=== PATIENT | male | born 1975 | race Caucasian/White ===

== ENCOUNTER 2018-03-14 06:09 | Inpatient (IN) | payer MEDICARE ==
[2018-03-14] MEDS: IV NORMAL SALINE 1000ML BAG 1,000 ML IV ×2 (06:48→13:56)
[2018-03-14 06:52] LABS: POC GLUCOSE 212 mg/dL (70-99)
[2018-03-14] MEDS ORDERED: LIDOCAINE 1% PF 2 ML VIAL. ID (07:00)
[2018-03-14] MEDS ORDERED: MORPHINE SULFATE 4 MG/ML DISP.SYRIN. IV (07:00)
[2018-03-14] MEDS ORDERED: PROCHLORPERAZINE 10 MG/2 ML VIAL. IV (07:00)
[2018-03-14] MEDS ORDERED: fentaNYL PF VIAL 100 MCG/2 ML VIAL IV (07:00)
[2018-03-14] MEDS ORDERED: fentaNYL PF VIAL 100 MCG/2 ML VIAL (07:10)
[2018-03-14] MEDS ORDERED: ROCURONIUM 50 MG/5 ML VIAL. (07:10)
[2018-03-14] MEDS ORDERED: SEVOFLURANE 61 TO 120 MINUTES. IH (07:11)
[2018-03-14] MEDS ORDERED: PROPOFOL 20 ML IV (07:11)
[2018-03-14] MEDS ORDERED: DEXAMETHASONE SOD PHOS 20 MG/5 ML VIAL. (07:11)
[2018-03-14] MEDS ORDERED: LIDOCAINE 2% PF Vial for OR 5 ML VIAL. (07:11)
[2018-03-14] MEDS ORDERED: ONDANSETRON PF 4 MG/2 ML VIAL. (07:11)
[2018-03-14] MEDS ORDERED: MIDAZOLAM HCL/PF 2 MG/2 ML VIAL. (07:12)
[2018-03-14 07:39] LABS: INR 1.2 (0.8-1.1); PARTIAL THROMBOPLASTIN TIME 42 SEC (24-38); PROTHROMBIN TIME PATIENT 14.5 SEC (11.7-14.0)
[2018-03-14] MEDS ORDERED: PHENYLEPHRINE in 0.9% NACL PF 1 MG/10 ML SYRINGE. IV ×2 (08:05→11:15)
[2018-03-14] MEDS ORDERED: SEVOFLURANE > 120 MINUTES. IH (10:30)
[2018-03-14 13:07] LABS: POC GLUCOSE 222 mg/dL (70-99)
[2018-03-14] MEDS ORDERED: oxyCODONE/APAP 5/325 1 TAB TABLET PO (13:30)
[2018-03-14] MEDS ORDERED: MORPHINE SULFATE 2 MG/ML DISP.SYRIN. IV (13:30)
[2018-03-14] MEDS ORDERED: 0.9 % SODIUM CHLORIDE 10 ML DISP.SYRIN. IV (13:30)
[2018-03-14] MEDS ORDERED: ONDANSETRON PF 4 MG/2 ML VIAL. IV (13:30)
[2018-03-14] MEDS: fentaNYL PF VIAL 100 MCG/2 ML VIAL IV (13:33)
[2018-03-14] MEDS: INSULIN ASPART 100 UNIT/ML 10ML VIAL. SQ (13:35)
[2018-03-14] MEDS ORDERED: DEXTROSE 50% 25 GM / 50ML DISP.SYRIN. IV (15:00)
[2018-03-14] MEDS ORDERED: ACETAMINOPHEN 500 MG TABLET PO (15:00)
[2018-03-14] MEDS: MORPHINE SULFATE 4 MG/ML DISP.SYRIN. IV ×2 (15:18→19:24)
[2018-03-14 15:28] LABS: GFR 10.4
[2018-03-14] MEDS ORDERED: WARFARIN SODIUM 9 MG PO (16:00)
[2018-03-14 16:17] LABS: POC GLUCOSE 221 mg/dL (70-99)
[2018-03-14] MEDS: WARFARIN 3 MG TABLET. PO (17:09)
[2018-03-14] MEDS: SEVELAMER CARBONATE 800 MG TABLET. PO (17:10)
[2018-03-14] MEDS: INSULIN LISPRO 300 UNITS/3 ML INSULN.PEN. SQ ×2 (17:20→22:48)
[2018-03-14 21:06] LABS: POC GLUCOSE 241 mg/dL (70-99)
[2018-03-14] MEDS: ATORVASTATIN CALCIUM 40 MG TABLET. PO (22:00)
[2018-03-14] MEDS: METOPROLOL TART IMMED RELEASE 50 MG TABLET. PO (22:00)
[2018-03-14] MEDS: PSEUDOEPHEDRINE 30 MG TABLET. PO (22:01)
[2018-03-14] MEDS: INSULIN GLARGINE 300 UNITS/3 ML INSULN.PEN. SQ (22:07)
[2018-03-15] MEDS ORDERED: HEPARIN for IV BOLUS 10,000 UNIT/10 ML VIAL. IV (01:00)
[2018-03-15] MEDS: HEPARIN 25,000UTS/500ML PREMIX 500 ML IV (01:20)
[2018-03-15 07:36] LABS: ADD MAN DIFF? NO
[2018-03-15 07:41] LABS: BASO % 0 % (0-3); EOS # 0.8 x10^3/uL (0.0-0.7); EOS % 13 % (0-3); HEMATOCRIT 23.7 % (39.0-53.0); HEMOGLOBIN 7.7 g/dL (13.0-17.5); LYMPH # 1.7 x10^3/uL (1.0-4.8); LYMPH % 28 % (24-48); MEAN CORPUSCULAR HEMOGLOBIN 31 pg (25-35); MEAN CORPUSCULAR HGB CONC 32 g/dL (31-37); MEAN CORPUSCULAR VOLUME 96 fL (79-100); MONO # 0.3 x10^3/uL (0.0-1.1); MONO % 5 % (0-9); NEUT # 3.2 x10^3uL (1.8-7.7); NEUT % 53 % (31-73); PLATELET COUNT 177 x10^3/uL (140-400); RED BLOOD COUNT 2.48 x10^6/uL (4.30-5.70); RED CELL DISTRIBUTION WIDTH 19.5 % (11.5-14.5)
[2018-03-15 07:50] LABS: ANION GAP 8 (6-14); BLOOD UREA NITROGEN 27 mg/dL (8-26); CALCIUM 8.2 mg/dL (8.5-10.1); CARBON DIOXIDE 31 mmol/L (21-32); CHLORIDE 101 mmol/L (98-107); CREATININE 7.5 mg/dL (0.7-1.3); GLUCOSE 241 mg/dL (70-99); POTASSIUM 4.6 mmol/L (3.5-5.1); SODIUM 140 mmol/L (136-145)
[2018-03-15 07:52] LABS: INR 1.3 (0.8-1.1); PROTHROMBIN TIME PATIENT 15.8 SEC (11.7-14.0)
[2018-03-15 07:57] LABS: POC GLUCOSE 216 mg/dL (70-99)
[2018-03-15] MEDS ORDERED: IV NORMAL SALINE 1000ML BAG 1,000 ML IV ×2 (08:02)
[2018-03-15 08:05] LABS: UNFRACTIONATED HEPARIN TESTING 0.48 IU/mL (0.30-0.70)
[2018-03-15] MEDS ORDERED: diphenhydrAMINE 50 MG/ML VIAL IV ×2 (08:15)
[2018-03-15] MEDS ORDERED: DIALYSIS PATIENT. MC (08:15)
[2018-03-15] MEDS: SEVELAMER CARBONATE 800 MG TABLET. PO ×3 (08:23→17:07)
[2018-03-15] MEDS: INSULIN LISPRO 300 UNITS/3 ML INSULN.PEN. SQ ×5 (08:23→20:58)
[2018-03-15] MEDS ORDERED: WARFARIN SODIUM 6 MG PO (09:00)
[2018-03-15] MEDS: IV NORMAL SALINE 1000ML BAG 1,000 ML IV ×2 (09:00→13:19)
[2018-03-15] MEDS: METOPROLOL TART IMMED RELEASE 50 MG TABLET. PO ×2 (09:00→20:57)
[2018-03-15] MEDS: PSEUDOEPHEDRINE 30 MG TABLET. PO ×2 (09:00→20:57)
[2018-03-15] MEDS: ASPIRIN ENTERIC COATED 81 MG TABLET.DR. PO (13:30)
[2018-03-15] MEDS: SERTRALINE 50 MG TABLET. PO (13:30)
[2018-03-15] MEDS: oxyCODONE/APAP 5/325 1 TAB TABLET PO (13:32)
[2018-03-15 13:41] LABS: POC GLUCOSE 98 mg/dL (70-99)
[2018-03-15 16:36] LABS: POC GLUCOSE 104 mg/dL (70-99)
[2018-03-15] MEDS: WARFARIN 3 MG TABLET. PO (17:07)
[2018-03-15 18:58] LABS: UNFRACTIONATED HEPARIN TESTING 0.31 IU/mL (0.30-0.70)
[2018-03-15 20:56] LABS: POC GLUCOSE 91 mg/dL (70-99)
[2018-03-15] MEDS: ATORVASTATIN CALCIUM 40 MG TABLET. PO (20:57)
[2018-03-15] MEDS: INSULIN GLARGINE 300 UNITS/3 ML INSULN.PEN. SQ (21:03)
[2018-03-16] MEDS: IV NORMAL SALINE 1000ML BAG 1,000 ML IV ×3 (02:08→21:20)
[2018-03-16] MEDS: HEPARIN 25,000UTS/500ML PREMIX 500 ML IV (02:14)
[2018-03-16] MEDS: oxyCODONE/APAP 5/325 1 TAB TABLET PO (02:15)
[2018-03-16 05:25] LABS: CALCIUM 8.4 mg/dL (8.5-10.1)
[2018-03-16 07:27] LABS: INR 1.5 (0.8-1.1); PROTHROMBIN TIME PATIENT 17.6 SEC (11.7-14.0); UNFRACTIONATED HEPARIN TESTING 0.35 IU/mL (0.30-0.70)
[2018-03-16] MEDS: INSULIN LISPRO 300 UNITS/3 ML INSULN.PEN. SQ ×7 (07:30→21:00)
[2018-03-16 08:04] LABS: POC GLUCOSE 186 mg/dL (70-99)
[2018-03-16] MEDS: METOPROLOL TART IMMED RELEASE 50 MG TABLET. PO ×2 (08:20→21:12)
[2018-03-16] MEDS: PSEUDOEPHEDRINE 30 MG TABLET. PO ×2 (08:20→21:19)
[2018-03-16] MEDS: SEVELAMER CARBONATE 800 MG TABLET. PO ×3 (08:21→17:24)
[2018-03-16] MEDS: ASPIRIN ENTERIC COATED 81 MG TABLET.DR. PO (08:21)
[2018-03-16] MEDS: SERTRALINE 50 MG TABLET. PO (09:00)
[2018-03-16 09:35] LABS: HEMATOCRIT 22.4 % (39.0-53.0); HEMOGLOBIN 7.1 g/dL (13.0-17.5); MEAN CORPUSCULAR HGB CONC 32 g/dL (31-37)
[2018-03-16 12:04] LABS: POC GLUCOSE 174 mg/dL (70-99)
[2018-03-16] MEDS: ANTI-COAG MONITOR BY PHARMACY. MC (12:28)
[2018-03-16] MEDS: WARFARIN 3 MG TABLET. PO (16:03)
[2018-03-16 17:17] LABS: POC GLUCOSE 143 mg/dL (70-99)
[2018-03-16] MEDS: ATORVASTATIN CALCIUM 40 MG TABLET. PO (21:12)
[2018-03-16] MEDS: INSULIN GLARGINE 300 UNITS/3 ML INSULN.PEN. SQ (21:16)
[2018-03-16 21:49] LABS: POC GLUCOSE 137 mg/dL (70-99)
[2018-03-17] MEDS: HEPARIN 25,000UTS/500ML PREMIX 500 ML IV (03:11)
[2018-03-17 04:56] LABS: PROTHROMBIN TIME PATIENT 22.4 SEC (11.7-14.0)
[2018-03-17 05:07] LABS: UNFRACTIONATED HEPARIN TESTING 0.68 IU/mL (0.30-0.70)
[2018-03-17] MEDS: INSULIN LISPRO 300 UNITS/3 ML INSULN.PEN. SQ ×4 (08:00→11:59)
[2018-03-17 08:22] LABS: POC GLUCOSE 125 mg/dL (70-99)
[2018-03-17] MEDS: SEVELAMER CARBONATE 800 MG TABLET. PO ×2 (08:30→12:02)
[2018-03-17] MEDS: SERTRALINE 50 MG TABLET. PO (08:31)
[2018-03-17] MEDS: ASPIRIN ENTERIC COATED 81 MG TABLET.DR. PO (08:31)
[2018-03-17] MEDS: METOPROLOL TART IMMED RELEASE 50 MG TABLET. PO (08:32)
[2018-03-17] MEDS: PSEUDOEPHEDRINE 30 MG TABLET. PO (08:42)
[2018-03-17] MEDS: WARFARIN 3 MG TABLET. PO (12:02)
[2018-03-17 12:22] LABS: POC GLUCOSE 128 mg/dL (70-99)
== END 2018-03-17 14:03 | disposition home or self-care (01) | DRG 674 ==
LOC: SURG 06:09 → 4 NORTH 13:27
PROVIDERS: Surgery
PROC: 0GBQ0ZZ Excision of Multiple Parathyroid Glands, Open Approach (ICD-10-PCS; 2018-03-14 07:30)
PROC: 5A1D70Z Performance of Urinary Filtration, Intermittent, Less than 6 Hours Per Day (ICD-10-PCS; principal; 2018-03-14 07:53)
DX: N25.81 Secondary hyperparathyroidism of renal origin (principal); I12.0 Hypertensive chronic kidney disease with stage 5 chronic kidney disease or end stage renal disease; N18.6 End stage renal disease; E11.22 Type 2 diabetes mellitus with diabetic chronic kidney disease; D64.9 Anemia, unspecified; F32.9 Major depressive disorder, single episode, unspecified; Z79.4 Long term (current) use of insulin; Z82.49 Family history of ischemic heart disease and other diseases of the circulatory system; Z95.2 Presence of prosthetic heart valve; Z99.2 Dependence on renal dialysis; Z88.8 Allergy status to other drugs, medicaments and biological substances
CPT/HCPCS: 36415; 80048; 82310; 82565; 82962; 85014; 85018; 85025; 85520; 85610; 85730; 88305; 88307; 88331; A7015; J1100; J1815; J1956; J2250; J2270; J2370; J2405; J2704; J3010; J7030